=== PATIENT | female | born 1970 | race Hispanic/Latino ===

== ENCOUNTER 2018-11-26 23:55 | Inpatient (IN) | payer OTHER ==
[~2018-11-26] VITALS: Ht 160 cm; Wt 69.1 kg
[2018-11-27] MEDS ORDERED: IOHEXOL-350 50ML VIAL IV ONE (01:53)
[2018-11-27 01:55] LABS: BASOPHILS % (AUTO) 0.4 % (0.0-5.0); EOSINOPHILS % (AUTO) 1.7 % (0.0-8.0); HEMATOCRIT 31.9 % (36-48); LYMPHOCYTES % (AUTO) 25.5 % (21.0-51.0); MEAN CORPUSCULAR HEMOGLOBIN 29.1 pg (27.0-33.0); MEAN CORPUSCULAR HGB CONC 32.4 g/dL (32.0-36.0); MEAN CORPUSCULAR VOLUME 89.7 fL (79-99); NEUTROPHILS % (AUTO) 62.4 % (40.0-77.0); NUCLEATED RED BLOOD CELLS 0.1 % (0.0-0.19); PLATELET COUNT (AUTO) 162 K/uL (130-400); RED BLOOD CELL COUNT(AUTO) 3.56 MIL/uL (4.00-5.50); RED CELL DISTRIBUTION WIDTH 15.9 % (11.0-15.5); WHITE BLOOD COUNT (AUTO) 6.4 K/uL (4.8-10.8)
[2018-11-27] MEDS ORDERED: ONDANSETRON HCL 4 MG/2 ML VIAL ONE (02:03)
[2018-11-27] MEDS ORDERED: CLINDAMYCIN 900 MG/D5% WATER 50 ML IV ONE (02:03)
[2018-11-27] MEDS ORDERED: SODIUM CHLORIDE 0.9% 1000ML 1,000 ML IV ONE (02:03)
[2018-11-27] MEDS ORDERED: MORPHINE SULFATE 4 MG/1ML SYG ONE ×2 (02:04→02:35)
[2018-11-27 02:07] LABS: CREATININE 0.7 mg/dL (0.5-1.5); POTASSIUM 3.7 mmol/L (3.5-5.1)
[2018-11-27 02:10] LABS: ALBUMIN 3.4 g/dL (3.5-5.0); BILIRUBIN,TOTAL 0.2 mg/dL (0.2-1.0); TOTAL PROTEIN, SERUM 7.2 g/dL (6.0-8.3)
[2018-11-27] MEDS ORDERED: HYDROMORPHONE 1 MG/1 ML AMP ONE (03:44)
[2018-11-27] MEDS ORDERED: ACETAMINOPHEN 325 MG TAB PO PRN ×2 (04:15)
[2018-11-27 05:25] VITALS: BP 133/82
[2018-11-27] MEDS: SODIUM CHLORIDE 0.9% 1000ML 1,000 ML IV SCH ×3 (05:52→23:51)
[2018-11-27] MEDS: CLINDAMYCIN 600 MG/D5% WATER 50 ML IV SCH ×3 (05:52→19:52)
[2018-11-27] MEDS: MORPHINE SULFATE 4 MG/1ML SYG IV PRN ×3 (06:00→23:13)
[2018-11-27 07:30] VITALS: BP 128/78
[2018-11-27] MEDS: FAMOTIDINE/PF 20 MG/2 ML VIAL IV SCH ×2 (10:14→19:52)
[2018-11-27] MEDS ORDERED: HYDROMORPHONE 1 MG/1 ML AMP IVP PRN (10:30)
[2018-11-27] MEDS: ONDANSETRON HCL 4 MG/2 ML VIAL IV PRN ×2 (12:19→16:38)
--- NOTE | 2018-11-27 12:57 | NUR ---
cm note met with patient and states resides athome with daughter, but currently staying with partner here in [place]. works as cross country/track and field coach/teacher. independent with adls/ambulation. no dc needs. Addendum: 11/27/18 at 1258 by CHETAN ROCHA CM Amended: Links added.
[2018-11-27 16:00] VITALS: BP 132/86
[2018-11-27 19:57] VITALS: BP 129/81
[2018-11-27 23:43] VITALS: BP 132/84
[2018-11-28] MEDS: KETOROLAC TROMETHAMINE 15MG/ML IM PRN ×3 (02:02→18:33)
[2018-11-28 03:52] VITALS: BP 126/75
[2018-11-28] MEDS: CLINDAMYCIN 600 MG/D5% WATER 50 ML IV SCH ×4 (04:18→22:51)
[2018-11-28 06:12] LABS: BASOPHILS % (AUTO) 0.4 % (0.0-5.0); EOSINOPHILS % (AUTO) 0.3 % (0.0-8.0); HEMATOCRIT 28.5 % (36-48); LYMPHOCYTES % (AUTO) 19.1 % (21.0-51.0); MEAN CORPUSCULAR HEMOGLOBIN 29.5 pg (27.0-33.0); MEAN CORPUSCULAR HGB CONC 33.1 g/dL (32.0-36.0); MONOCYTES % (AUTO) 9.5 % (3.0-13.0); NEUTROPHILS % (AUTO) 70.7 % (40.0-77.0); NUCLEATED RED BLOOD CELLS 0.1 % (0.0-0.19); PLATELET COUNT (AUTO) 159 K/uL (130-400); RED BLOOD CELL COUNT(AUTO) 3.21 MIL/uL (4.00-5.50); RED CELL DISTRIBUTION WIDTH 15.6 % (11.0-15.5)
[2018-11-28 06:19] LABS: CREATININE 0.6 mg/dL (0.5-1.5); POTASSIUM 3.6 mmol/L (3.5-5.1)
[2018-11-28 08:00] VITALS: BP 151/94
[2018-11-28] MEDS: MORPHINE SULFATE 4 MG/1ML SYG IV PRN (08:12)
[2018-11-28] MEDS ORDERED: FAMOTIDINE 20MG TAB 20 MG TAB ONE (10:42)
[2018-11-28] MEDS ORDERED: ACETAMINOPHEN 325 MG TAB PO PRN ×2 (11:15)
[2018-11-28] MEDS: ONDANSETRON HCL MDV 20ML 2 MG/ML VIAL IVP PRN ×2 (11:22→18:29)
[2018-11-28] MEDS: SODIUM CHLORIDE 0.9% 1000ML 1,000 ML IV SCH ×2 (11:24→21:15)
[2018-11-28 12:00] VITALS: BP 131/86
--- NOTE | 2018-11-28 13:17 | NUR ---
Notified Dr. Marie's office of consult.
[2018-11-28 16:00] VITALS: BP 128/74
[2018-11-28] MEDS: MORPHINE SULFATE 2 MG/ML 1ML SYG IVP PRN (16:09)
--- NOTE | 2018-11-28 16:25 | NUR ---
Dr. Marie in to see pt.
--- NOTE | 2018-11-28 16:30 | NUR ---
Dr. Marie informed pt. she will need intravenous antibiotics for 3 to 5 days. No surgery needed.
[2018-11-28 20:00] VITALS: BP 138/90
[2018-11-28] MEDS: FAMOTIDINE 20MG TAB 20 MG TAB PO SCH (20:17)
[2018-11-29] VITALS: BP 126/81
[2018-11-29] MEDS: ONDANSETRON HCL MDV 20ML 2 MG/ML VIAL IVP PRN ×3 (00:13→18:19)
[2018-11-29] MEDS: MORPHINE SULFATE 2 MG/ML 1ML SYG IVP PRN ×5 (00:13→21:33)
[2018-11-29 04:00] VITALS: BP 139/87
[2018-11-29 04:36] LABS: BASOPHILS % (AUTO) 0.5 % (0.0-5.0); EOSINOPHILS % (AUTO) 0.4 % (0.0-8.0); HEMATOCRIT 27.6 % (36-48); LYMPHOCYTES % (AUTO) 29.5 % (21.0-51.0); MEAN CORPUSCULAR HEMOGLOBIN 29.1 pg (27.0-33.0); MEAN CORPUSCULAR VOLUME 88.2 fL (79-99); MONOCYTES % (AUTO) 8.2 % (3.0-13.0); NEUTROPHILS % (AUTO) 61.4 % (40.0-77.0); PLATELET COUNT (AUTO) 161 K/uL (130-400); RED BLOOD CELL COUNT(AUTO) 3.12 MIL/uL (4.00-5.50); RED CELL DISTRIBUTION WIDTH 15.2 % (11.0-15.5); WHITE BLOOD COUNT (AUTO) 3.9 K/uL (4.8-10.8)
[2018-11-29 04:58] LABS: CREATININE 0.6 mg/dL (0.5-1.5); POTASSIUM 3.9 mmol/L (3.5-5.1)
[2018-11-29] MEDS: CLINDAMYCIN 600 MG/D5% WATER 50 ML IV SCH ×4 (05:13→23:04)
[2018-11-29] MEDS ORDERED: ONDANSETRON HCL 4 MG/2 ML VIAL ONE (05:17)
[2018-11-29] MEDS: SODIUM CHLORIDE 0.9% 1000ML 1,000 ML IV SCH ×2 (06:35→09:05)
[2018-11-29 08:00] VITALS: BP 134/72
[2018-11-29] MEDS: FAMOTIDINE 20MG TAB 20 MG TAB PO SCH ×2 (09:04→20:29)
--- NOTE | 2018-11-29 10:10 | NUR ---
DYSPHAGIA EVALUATION COMPLETED. -S/S OF ASPIRATION. RECOMMEND CLEAR LIQUID DIET. PATIENT INFORMATION: Pt IS A 48 YEAR OLD FEMALE REFERRED FOR A BEDSIDE DYSPHAGIA EVALUATION SECONDARY TO DECREASED ABILITY TO SWALLOW. Pt COOPERATIVE DURING THE EVALUATION. Pt CURRENTLY ADMITTED SECONDARY TO LEFT SUBMANDIBULAR CELLULITIS. Pt HAS A PAST MEDICAL HISTORY SIGNIFICANT FOR MIGRAINE HEADACHE. Pt REPORTS THAT SWELLING HAS DIMINISHED SINCE BEGINNING OF ANTIBIOTICS. EVALUATION: Pt PRESENTS WITH INCREASED SWELLING IN MANDIBLE AFFECTING BASE OF TONGUE, DECREASING SPACE IN THROAT WHEN SWALLOWING RESULTING IN DIFFICULTY SWALLOWING PUREE AND PUDDING TEXTURES. Pt WITH INCREASED EDEMA AT THIS TIME. RECOMMEND DIET DOWNGRADE AT THIS TIME. NO S/S OF ASPIRATION PRESENT AT THE TIME OF THE EVALUATION. RECOMMENDATIONS. 1. CLEAR LIQUID DIET. 2. RE-EVAL WHEN SWELLING DECREASES. G-CODES SWALLOWING: [id number] Addendum: 11/29/18 at [address] Amended: Links added.
[2018-11-29 12:00] VITALS: BP 134/90
[2018-11-29 16:00] VITALS: BP 150/86
[2018-11-29 19:38] VITALS: BP 132/78
[2018-11-30] VITALS (7 sets, daily range): BP systolic 114–148; BP diastolic 71–84
[2018-11-30] MEDS: ONDANSETRON HCL MDV 20ML 2 MG/ML VIAL IVP PRN ×3 (01:35→18:38)
[2018-11-30] MEDS: MORPHINE SULFATE 2 MG/ML 1ML SYG IVP PRN ×4 (01:38→18:40)
[2018-11-30] MEDS: SODIUM CHLORIDE 0.9% 1000ML 1,000 ML IV SCH ×3 (03:15→23:15)
[2018-11-30 05:03] LABS: BASOPHILS % (AUTO) 0.7 % (0.0-5.0); EOSINOPHILS % (AUTO) 1.2 % (0.0-8.0); HEMATOCRIT 26.7 % (36-48); LYMPHOCYTES % (AUTO) 35.3 % (21.0-51.0); MEAN CORPUSCULAR HEMOGLOBIN 28.8 pg (27.0-33.0); MEAN CORPUSCULAR HGB CONC 32.9 g/dL (32.0-36.0); MEAN CORPUSCULAR VOLUME 87.6 fL (79-99); MONOCYTES % (AUTO) 10.7 % (3.0-13.0); NEUTROPHILS % (AUTO) 52.1 % (40.0-77.0); NUCLEATED RED BLOOD CELLS 0.1 % (0.0-0.19); PLATELET COUNT (AUTO) 183 K/uL (130-400); RED BLOOD CELL COUNT(AUTO) 3.04 MIL/uL (4.00-5.50); RED CELL DISTRIBUTION WIDTH 15.1 % (11.0-15.5); WHITE BLOOD COUNT (AUTO) 3.5 K/uL (4.8-10.8)
[2018-11-30 05:20] LABS: CREATININE 0.6 mg/dL (0.5-1.5); POTASSIUM 3.6 mmol/L (3.5-5.1)
[2018-11-30] MEDS: CLINDAMYCIN 600 MG/D5% WATER 50 ML IV SCH ×4 (05:20→23:09)
[2018-11-30] MEDS: KETOROLAC TROMETHAMINE 15MG/ML IM PRN ×2 (05:21→17:13)
[2018-11-30] MEDS ORDERED: AMOX500C2 PO (08:23)
[2018-11-30] MEDS ORDERED: IBUP-2077 PO (08:23)
[2018-11-30] MEDS: FAMOTIDINE 20MG TAB 20 MG TAB PO SCH ×2 (09:51→20:14)
--- NOTE | 2018-11-30 13:02 | NUR ---
FOLLOW-UP COMPLETED. Pt REPORTS THAT SHE ATTEMPTED TO SWALLOW PUDDING AND CONTINUES TO FEEL THE SWELLING CAUSING EFFORTFUL SWALLOW AND DISCOMFORT WHEN SWALLOWING. RECOMMEND CONTINUED CLEAR LIQUIDS DIET AT THIS TIME. PT VERBALIZED AGREEMENT WITH RECOMMENDATIONS. TRAVEL REGISTERED NURSE ICU WILL FOLLOW UP TOMORROW. Addendum: 11/30/18 at 1304 by MILLIE ESCOTO, [facility] Amended: Links added.
[2018-11-30] MEDS ORDERED: IOHEXOL-350 50ML VIAL IV ONE (15:00)
[2018-11-30] MEDS: KETOROLAC TROMETHAMINE 15MG/ML IV PRN (23:10)
[2018-12-01] MEDS: ONDANSETRON HCL MDV 20ML 2 MG/ML VIAL IVP PRN ×2 (02:08→09:45)
[2018-12-01] MEDS: MORPHINE SULFATE 2 MG/ML 1ML SYG IVP PRN ×2 (02:12→09:48)
[2018-12-01 03:43] VITALS: BP 131/77
[2018-12-01 04:39] LABS: BASOPHILS % (AUTO) 0.7 % (0.0-5.0); EOSINOPHILS % (AUTO) 1.8 % (0.0-8.0); HEMATOCRIT 27.3 % (36-48); LYMPHOCYTES % (AUTO) 36.9 % (21.0-51.0); MEAN CORPUSCULAR HEMOGLOBIN 29.3 pg (27.0-33.0); MEAN CORPUSCULAR HGB CONC 33.6 g/dL (32.0-36.0); MEAN CORPUSCULAR VOLUME 87.2 fL (79-99); MONOCYTES % (AUTO) 11.6 % (3.0-13.0); PLATELET COUNT (AUTO) 200 K/uL (130-400); RED BLOOD CELL COUNT(AUTO) 3.13 MIL/uL (4.00-5.50); RED CELL DISTRIBUTION WIDTH 15.4 % (11.0-15.5); WHITE BLOOD COUNT (AUTO) 3.7 K/uL (4.8-10.8)
[2018-12-01 04:52] LABS: CREATININE 0.7 mg/dL (0.5-1.5); POTASSIUM 3.4 mmol/L (3.5-5.1)
[2018-12-01] MEDS: CLINDAMYCIN 600 MG/D5% WATER 50 ML IV SCH ×2 (05:16→11:08)
[2018-12-01] MEDS: KETOROLAC TROMETHAMINE 15MG/ML IV PRN (05:17)
[2018-12-01] MEDS ORDERED: POTASSIUM CHLORIDE 20 MEQ ERTAB PO SCH ×2 (07:00→12:00)
[2018-12-01] MEDS ORDERED: ONDA4TAB4 PO (07:13)
[2018-12-01] MEDS ORDERED: TYL3 PO (07:13)
[2018-12-01 07:44] VITALS: BP 132/75
[2018-12-01] MEDS: FAMOTIDINE 20MG TAB 20 MG TAB PO SCH (07:59)
[2018-12-01] MEDS: SODIUM CHLORIDE 0.9% 1000ML 1,000 ML IV SCH (09:56)
[2018-12-01 11:34] VITALS: BP 156/101
--- NOTE | 2018-12-01 12:15 | NUR ---
PATIENT GIVEN DISCHARGE INSTRUCTIONS AND VERBALIZED UNDERSTANDING, IV REMOVED WITH CATHETER INTACT AND SITE COVED WITH PRESSURED DRESSING. PATIENT INSTRUCTED TO CALL DR DOVER OFFICE FOR FOLLOW-UP APPOINTMENT IN ONE WEEK. REVIEWED MEDICATIONS AND PATIENT HAD NO QUESTIONS OR CONCERNS AT THIS TIME . WALKED PATIENT AND FRIEND DOWNSTAIR AND LEFT WITH FRIEND IN PRIVATE CAR FOR HOME
[2018-12-01 19:52] VITALS: BP 115/62
== END 2018-12-01 13:07 | disposition home or self-care (01) | DRG 603 ==
LOC: EDH 23:55 → OBSVTOIN 11-27 04:00 → EDHIP 11-27 04:00 → 4AH 11-27 05:05
PROVIDERS: ADMIT Hospitalist; ATTEND Hospitalist
DX: L03.211 Cellulitis of face (principal); K11.20 Sialoadenitis, unspecified; G43.909 Migraine, unspecified, not intractable, without status migrainosus; Z90.710 Acquired absence of both cervix and uterus; Z88.1 Allergy status to other antibiotic agents
CPT/HCPCS: 36415; 70491; 80048; 80053; 83605; 85025; 85651; 86140; 87040; 92610; G0378; J1170; J1885; J2270; J2405; J3490; J7030; Q9967

== ENCOUNTER 2023-09-24 14:21 | Emergency (ER) | payer BC, OTHER ==
[~2023-09-24] VITALS: Ht 160 cm; Wt 68.5 kg
[~2023-09-24 14:21] MED LIST: IBUP-2077 PO; ONDA4TAB4 PO; TYL3 PO
[2023-09-24] MEDS ORDERED: MELO-106 PO (18:46)
[2023-09-24 18:52] VITALS: BP 117/66; PULSE 87; RESP 18; O2SAT 98
[2023-09-24] MEDS ORDERED: IBUPROFEN 600 MG TABLET PO ONE (19:00)
[2023-09-24] MEDS ORDERED: CYCLOBENZAPRINE HCL 10 MG TABLET PO ONE (19:00)
== END 2023-09-24 18:59 | disposition home or self-care (01) ==
LOC: EDH 14:21
DX: M75.02 Adhesive capsulitis of left shoulder (principal); Z88.2 Allergy status to sulfonamides
CPT/HCPCS: 73030